=== PATIENT | male | born 1995 | race Caucasian/White ===

== ENCOUNTER 2021-06-08 16:50 | Emergency (ER) | payer BC, SELFPAY ==
--- NOTE | ~2021-06-08 | XR_ITS ---
EXAMINATION: XR ANKLE, LEFT CLINICAL INFORMATION: Twisted. fell ice fishing x2days COMPARISON: None TECHNIQUE: AP, lateral, and mortise views of the left ankle. FINDINGS: Hull B distal fibular fracture with minimal posterolateral displacement (2 mm). Surrounding soft tissues are edematous and swollen. Ankle joint effusion. Medial malleolus is normal. Bone mineralization is normal. Ankle mortise is symmetric. XR/XR ankle LT 2V IMPRESSION: Minimally displaced Hull B distal fibular fracture with an ankle joint effusion. No additional fractures are identified.
--- NOTE | ~2021-06-08 | XR_ITS ---
EXAMINATION: XR FOOT, LEFT CLINICAL INFORMATION: Pain. Injury. COMPARISON: None TECHNIQUE: AP, lateral, and oblique views of the left foot. FINDINGS: Soft tissues are swollen. Hull B distal fibular fracture is again noted. No appreciable fractures in the foot are identified. Bone mineralization is normal. Joint spaces are well-preserved. XR/XR foot LT 2V IMPRESSION: Hull B distal fibular fracture. No separate fractures of the foot.
[2021-06-08 16:57] VITALS: BP 139/83; PULSE 113; RESP 18; TEMP 36.9; O2SAT 99; BMI 18.6
--- NOTE | 2021-06-08 17:28 | ED_ITS ---
HPI - Extremity Injury (Lower) General Chief Complaint: Extremity Injury, Lower Stated Complaint: Twisted left ankle Time Seen by Provider: 06/08/21 17:28 Source: patient Mode of arrival: ambulatory Limitations: no limitations History of Present Illness HPI Narrative: 25 yo male healthy here with complaints of left ankle pain after fall Monday. Inversion injury of left ankle then fell on ankle. Unable to bear weight since fall. NO numbnes, tingling, redness, fevers, chills. Related Data Allergies Allergy/AdvReac Type Severity Reaction Status Date / Time No Known Allergies* Allergy Unknown Uncoded 06/08/21 17:24 Review of Systems Review of Systems: Yes all other systems are reviewed and are negative Constitutional: Constitutional: Reports no additional constitutional complaints, Denies body ache(s), Denies chills, Denies fever(s), Denies headache(s) and Denies weakness Eyes: Eyes: Reports no additional eye complaints and Denies change in vision ENT: Reports system reviewed and no additional complaints, except as documented, Denies dizziness, Denies headache(s), Denies nasal congestion, Denies nasal discharge and Denies neck pain Cardiovascular: Cardiovascular: Reports no additional cardiovascular complaints, Denies chest pain, Denies leg edema and Denies dyspnea Respiratory: Respiratory: Reports no additional respiratory complaints, Denies cough and Denies dyspnea Gastrointestinal: Gastrointestinal: Reports no additional gastrointestinal complaints, Denies abdominal pain, Denies diarrhea, Denies nausea and Denies vomiting Genitourinary: Genitourinary: Denies urinary incontinence Musculoskeletal: Musculoskeletal: Reports no additional musculoskeletal complaints, Denies back pain, Reports arthralgias, Reports joint swelling, Reports limited range of motion, Denies neck pain, Denies numbness and Denies tingling Integumentary/Breasts: Skin/Breast: Reports system reviewed and no additional complaints, except as docu and Denies rash Neurologic: Reports system reviewed and no additional complaints, except as documented, Denies Abnormal speech present, Denies dizziness, Denies headache(s), Denies numbness, Denies tingling and Denies weakness PMFSH Past Medical History Attestation statement: The following information was validated with the patient. Source: old records reviewed and nursing notes reviewed Social History Social History Advance Directives: No Advance Directives Information Provided: No Physical Exam Vital Signs: Vital Signs: Last Vital Signs Temp 98.4 F 06/08/21 16:57 Pulse 113 H 06/08/21 16:57 Resp 18 06/08/21 16:57 BP 139/83 06/08/21 16:57 Pulse Ox 99 06/08/21 16:57 BMI result Body Mass Index 18.6 Const: General: cooperative, healthy appearing, comfortable and no acute distress Orientation/consciousness: patient oriented x3 Limitations: no limitations HENMT: Head: Yes normal to inspection Ears: hearing grossly normal bilaterally General nose exam: Normal external nose present Face and sinus: Yes normal facial exam Mouth: Normal oral and palatal mucosa present Throat: Yes posterior oropharynx normal Eyes: General: appearance normal, both eyes and all related structures Pupils: Equal, round and reactive pupils present Neck: Neck: Yes normal visual inspection Chest: Chest palpation & inspection: normal inspection of the chest Resp: Effort & Inspection: normal respiratory effort Auscultation: clear to auscultation bilaterally Cardio: Rate: regular rate Rhythm: regular rhythm Peripheral pulses: Peripheral pulses 2+ throughout GI: Inspection: Yes normal to inspection Palpation (GI): Soft to palpation and nontender Auscultation: normal bowel sounds Back/Spine/Pelvis: Thoracic/Lumbar Spine: thoracic and lumbar spine normal to inspection Skin: General skin exam: no rashes or lesions noted Neuro: General: patient oriented x3, no focal motor deficits and normal sensation to monofilament Cranial nerves: Yes Equal, round and reactive pupils present Cognition (Neuro): normal cognition Speech: No Abnormal speech present Gait exam (Neuro): Normal gait present Motor exam (neuro): 5/5 motor strength present throughout Extrem: Other: Tenderness to the lateral left ankle with ecchymosis, tenderness to left dorsal foot with ecchymosis, swelling. +DP/PT pulses. Sensation intact. Normal cap refill General: Yes normal to inspection Course Course Course Narrative: 25 yo male here with left/foot ankle pain/swelling/ecchymosis after inversion injury left ankle Monday. Will need x-rays. 1829-x-ray show Minimally displaced Hull B distal fibular fracture with an ankle joint effusion. No additional fractures are identified. Discussed case with Jo CORMIER from Orthopedics. Recommended placing patient in a orthopedic boot with crutches with strict nonweightbearing Reviewed worrisome signs and symptoms with the patient. Reviewed rice for home. Comfortable plan for discharge home MDM - Extremity Injury (Lower) Medical Records Attestation: I reviewed the patient's medical records. Lab Data Attestation: I reviewed the patient's lab results. Imaging Data ankle x-ray: Attestation: I personally reviewed and interpreted this imaging study as follows: Radiologist's impression: [address] [address] XRay Report Signed Patient: Isrrael Lamar MR#: [id number] : 1995 Acct:[id number] Age/Sex: 25 / M ADM Date: 06/08/21 Loc: .ED Attending Dr: Ordering Physician: Sandy Mauricio DO Date of Service: 06/08/21 Procedure(s): XR ankle LT 2V Accession Number(s): [id number] cc: Sandy Mauricio DO~ EXAMINATION: XR ANKLE, LEFT CLINICAL INFORMATION: Twisted. fell ice fishing x2days? COMPARISON: None? TECHNIQUE: AP, lateral, and mortise views of the left ankle. FINDINGS: Hull B distal fibular fracture with minimal posterolateral displacement (2 mm). Surrounding soft tissues are edematous and swollen. Ankle joint effusion. Medial malleolus is normal. Bone mineralization is normal. Ankle mortise is symmetric. XR/XR ankle LT 2V IMPRESSION: Minimally displaced Hull B distal fibular fracture with an ankle joint effusion. No additional fractures are identified. foot xray: Attestation: I personally reviewed and interpreted this imaging study as follows: Radiologist's impression: FINDINGS: Soft tissues are swollen. Hull B distal fibular fracture is again noted. No appreciable fractures in the foot are identified. Bone mineralization is normal. Joint spaces are well-preserved.? XR/XR foot LT 2V IMPRESSION: Hull B distal fibular fracture. No separate fractures of the ju Procedures Procedure Narrative Procedure Narrative: Orthopedic boot, crutches Discharge Plan Discharge Clinical Impression: Fracture of distal end of fibula Qualifiers: Encounter type: initial encounter Fracture type: closed Laterality: left Patient Disposition: Home, Self-Care Instructions: Leg Fracture (ED), Crutch Instructions (ED), R.I.C.E. Treatment (ED) Additional Instructions: Use the boot while ambulating. Do not bear weight on the extremity and use crutches. Elevate, ice, rest Take Motrin as needed for pain Call Orthopedics for follow-up Referrals: Isaiah Horn MD [Physician] - 5 days Interventions: ED Discharge Assessment Last Done: 06/08/21 18:27 Discharge Date/Time: 06/08/21 18:28
== END 2021-06-08 18:28 | disposition home or self-care (01) ==
PROVIDERS: Emergency Provider Emergency Medicine
DX: S82.62XA Displaced fracture of lateral malleolus of left fibula, initial encounter for closed fracture (principal); W00.0XXA Fall on same level due to ice and snow, initial encounter; Y93.29 Activity, other involving ice and snow; Y92.828 Other wilderness area as the place of occurrence of the external cause; Y99.8 Other external cause status
CPT/HCPCS: 73600; 73620; 99283

== ENCOUNTER 2021-06-14 07:53 | Outpatient (REF) | payer BC, SELFPAY ==
--- NOTE | ~2021-06-14 | XR_ITS ---
EXAMINATION: XR ANKLE, LEFT CLINICAL INFORMATION: Left ankle fracture. Pain. COMPARISON: Left ankle 06/08/2021. TECHNIQUE: AP, lateral, and mortise views of the left ankle. FINDINGS: There is minimally displaced oblique fracture distal fibula with moderate soft tissue swelling slightly improved since previous study 06/08/2021. No additional fractures seen. The ankle mortise and subtalar joints are normal. XR/XR ankle LT min 3V IMPRESSION: Oblique distal fibular displaced fracture unchanged to last exam 06/08/2021. Moderate lateral malleolar soft tissue swelling has slightly improved.
== END 2021-06-14 07:54 | disposition home or self-care (01) ==
LOC: HO.HOSX 07:53
PROVIDERS: Visit Provider Physician Assistant
DX: M25.572 Pain in left ankle and joints of left foot (principal)
CPT/HCPCS: 73610

== ENCOUNTER 2021-06-28 13:12 | Outpatient (REF) | payer BC, SELFPAY ==
--- NOTE | ~2021-06-28 | XR_ITS ---
EXAMINATION: XR ankle LT min 3V CLINICAL INFORMATION: Pain COMPARISON: Left ankle radiograph 06/14/2021 TECHNIQUE: 3 views of the ankle XR/XR ankle LT min 3V FINDINGS/IMPRESSION: Redemonstration of the obliquely oriented fracture of the lateral malleolus which is mildly displaced, in unchanged alignment. No significant interval periosteal reaction or bony callus formation. Joint spaces are maintained. Small tibiotalar joint effusion, decreased from prior. Interval decrease in soft tissue swelling over the lateral malleolus.
== END 2021-06-28 13:13 | disposition home or self-care (01) ==
LOC: HO.HOSX 13:12
PROVIDERS: Visit Provider Physician Assistant
DX: S82.832D Other fracture of upper and lower end of left fibula, subsequent encounter for closed fracture with routine healing (principal)
CPT/HCPCS: 73610

== ENCOUNTER 2021-07-28 12:32 | Outpatient (REF) | payer BC, SELFPAY | END 2021-07-28 12:33 | disposition home or self-care (01) | LOC: HO.HOSX 12:32 | PROVIDERS: Visit Provider Physician Assistant | DX: Z13.89 Encounter for screening for other disorder (principal) ==

== ENCOUNTER 2021-12-12 00:10 | Emergency (ER) | payer BC, SELFPAY ==
[2021-12-12 00:17] VITALS: BP 126/81; PULSE 100; RESP 16; TEMP 35.9; O2SAT 95; BMI 20.1
--- NOTE | 2021-12-12 00:48 | ED_ITS ---
HPI - Extremity Problem General Chief complaint: Extremity Injury, Upper Stated complaint: hand laceration Time Seen by Provider: 12/12/21 01:11 Source: patient Mode of arrival: ambulatory Limitations: no limitations History of Present Illness HPI Narrative: 26-year-old male presents with laceration to the dorsal aspect of his right hand on the lateral side. States that he cut himself on a piece of glass. It is unknown when his last Tdap vaccine was updated. He has full range of motion and strength to the right hand. Does not report any other medical complaints at this time. Onset (ago): hour(s) (Within the hour of arrival) Location: right and upper extremity Severity scale (1-10): 2 Quality: aching Radiation: none Relieving factors: nothing Exacerbating factors: range of motion and palpation Associated symptoms: denies other symptoms Related Data Home Medications Medication Instructions Recorded Confirmed No Known Home Meds 06/14/21 06/14/21 Allergies Allergy/AdvReac Type Severity Reaction Status Date / Time No Known Allergies* Allergy Unknown Uncoded 06/28/21 13:23 Review of Systems Review of Systems: Constitutional: No Fever, No Chills ENT/Mouth: No Ear Pain, No Hoarseness, No sore throat Eyes: No Eye Pain, No Swelling, No Redness, No Foreign Body Cardiovascular: No Chest Pain, No SOB Respiratory: No Cough, No Dyspnea Gastrointestinal: No Nausea, No Vomiting, No Diarrhea, No abdominal Pain Genitourinary: No Dysuria, No Hematuria Musculoskeletal: positive right hand pain, No Myalgias, No Joint Swelling Skin: Positive right hand laceration, No rash Neuro: No Weakness, No Numbness, No Paresthesias, No Loss of Consciousness, No Dizziness, No Headache Psych: No Anxiety/Panic, No Depression Heme/Lymph: no easy bruising, no Lymphadenopathy Endocrine: No Polyuria, No Polydipsia Yes all other systems are reviewed and are negative [facility] Past Medical History Attestation statement: The following information was validated with the patient. Source: old records reviewed Social History Social History Current occupation: [employer] Physical Exam Vital Signs: Vital Signs: Last Vital Signs Temp 96.7 F L 12/12/21 00:17 Pulse 100 12/12/21 00:17 Resp 16 12/12/21 00:17 BP 126/81 12/12/21 00:17 Pulse Ox 95 12/12/21 00:17 O2 Del Method 12/12/21 00:17 BMI result Body Mass Index 20.1 Appearance: Alert. Oriented X3. No acute distress. Eyes: Pupils equal, round and reactive to light. ENT: Pharynx normal. Neck: Normal inspection. Neck supple. CVS: Normal heart rate and rhythm. Pulses normal. Respiratory: No respiratory distress. Breath sounds normal. Abdomen: Soft and nontender. Skin: 2 cm laceration to the dorsal aspect of the lateral right hand. Skin warm and dry. Normal skin color. Normal skin turgor. Extremities: Full range of motion, brisk capillary refill and strength 5/5 to bilateral upper extremities. Gait well-balanced well coordinated. Neuro: No motor deficit. No sensory deficit. Cranial nerves 2-12 intact. Course Course Course Narrative: 26-year-old male presents for laceration to the dorsal aspect of right hand. Approximately 2 cm in length. Patient blood pressure dressing but was unable to control the bleeding. No bleeding upon arrival to the emergency department. Has full range of motion to all digits. Brisk capillary refill and equal pulses to all digits. Afebrile. Nontoxic. Plan is for laceration repair. 01:12 prepped and draped in sterile fashion. Patient tolerated procedure well. Irrigated with copious amounts of normal saline. Patient continues with brisk capillary refill after laceration repair. Patient verbalized understanding of signs and symptoms indicating need for emergent intervention. Verbalized understanding of and agrees to plan of care discharge home. MDM - Extremity (Nontraumatic) MDM Narrative Medical decision making narrative: Laceration Medical Records Attestation: I reviewed the patient's medical records. Procedures Laceration Laceration 1: Site: hand Side (If applicable): right Size (cm): 2 Description: linear Depth: simple, single layer Local Anesthetic: lidocaine 1% Amount of anesthesia used (mL): 4 Pre-repair: wound explored, irrigated extensively and deep structures intact Skin layer closed with: nylon Size (cm): 5-0 Number of sutures: 6 Technique: simple, interrupted Discharge Plan Discharge Clinical Impression: Hand laceration Patient Disposition: Home, Self-Care Instructions: Care For Your Stitches (ED), Laceration (ED) Additional Instructions: You were evaluated for laceration to your right hand. Please return in 7-10 days to have sutures removed. If you notice any signs or symptoms indicating infection please return for evaluation. We updated your Tdap vaccine today. Thank you for choosing this emergency department for evaluation. Please follow-up with primary care physician as needed. Return to the emergency department for any new, concerning, or worsening symptoms. Prescriptions: No Action No Known Home Meds
[2021-12-12] MEDS: Diphth,Pertus(ACell),Tet Adult 0.5 ML SYRINGE IM (01:13)
== END 2021-12-12 01:34 | disposition home or self-care (01) ==
PROVIDERS: Emergency Provider Emergency Medicine Emergency Medical Services
DX: S61.411A Laceration without foreign body of right hand, initial encounter (principal); W25.XXXA Contact with sharp glass, initial encounter; Y93.9 Activity, unspecified; Y92.9 Unspecified place or not applicable; Y99.9 Unspecified external cause status; Z79.899 Other long term (current) drug therapy
CPT/HCPCS: 12001; 90471; 90715; 96372; 99284

== ENCOUNTER 2022-05-02 18:15 | Emergency (ER) | payer BC, SELFPAY ==
--- NOTE | ~2022-05-02 | XR_ITS ---
EXAMINATION: XR CHEST CLINICAL INFORMATION: Cough and chest pain COMPARISON: None TECHNIQUE: 2 views of the chest were obtained. FINDINGS: No significant abnormality is noted involving the heart, lungs, mediastinum, bony thorax or soft tissues. XR/XR chest 2V IMPRESSION: Unremarkable examination.
--- NOTE | 2022-05-02 18:18 | ECG_ITS ---
Test Reason : cp Blood Pressure : / mmHG Vent. Rate : 099 BPM Atrial Rate : 099 BPM P-R Int : 126 ms QRS Dur : 090 ms QT Int : 328 ms P-R-T Axes : 073 082 048 degrees QTc Int : 420 ms Sinus rhythm with Premature supraventricular complexes Otherwise normal ECG No previous ECGs available Referred By: Marta Michaud Electronically Signed By:JACQUELYN LABOY
[2022-05-02 18:25] VITALS: BP 144/98; PULSE 102; RESP 18; TEMP 37; O2SAT 99; BMI 21.0
--- NOTE | 2022-05-02 18:27 | ED.CHESTPAIN ---
HPI - Chest Pain General Chief Complaint: Dizziness Stated Complaint: Hot, Chest Pain, Hard time breathing Time Seen by Provider: 05/02/22 19:45 Source: patient Mode of arrival: ambulatory Limitations: no limitations History of Present Illness HPI narrative: 26 yo male healthy here with feeling lightheaded, chest pain w/ breathing, shortness of breath, feeling hot all over intermittent since this morning. No cough, fevers, vomiting, diarrhea, headache, neck pain or neck stiffness, skin rash. Related Data Home Medications Medication Instructions Recorded Confirmed No Known Home Meds 06/14/21 06/14/21 Allergies Allergy/AdvReac Type Severity Reaction Status Date / Time No Known Allergies* Allergy Unknown Uncoded 06/28/21 13:23 Review of Systems Review of Systems: Yes all other systems are reviewed and are negative Constitutional: Constitutional: Reports no additional constitutional complaints, Denies body ache(s), Denies chills, Denies fever(s), Denies headache(s) and Denies weakness Eyes: Eyes: Reports no additional eye complaints and Denies change in vision ENT: Reports system reviewed and no additional complaints, except as documented, Reports dizziness, Denies headache(s), Denies nasal congestion, Denies nasal discharge and Denies neck pain Cardiovascular: Cardiovascular: Reports no additional cardiovascular complaints, Reports chest pain, Denies leg edema and Reports dyspnea Respiratory: Respiratory: Reports no additional respiratory complaints, Denies cough and Reports dyspnea Gastrointestinal: Gastrointestinal: Reports no additional gastrointestinal complaints, Denies abdominal pain, Denies diarrhea, Denies nausea and Denies vomiting Genitourinary: Genitourinary: Denies urinary incontinence Musculoskeletal: Musculoskeletal: Reports no additional musculoskeletal complaints, Denies back pain, Denies arthralgias, Denies joint swelling, Denies neck pain, Denies numbness and Denies tingling Integumentary/Breasts: Skin/Breast: Reports system reviewed and no additional complaints, except as docu and Denies rash Neurologic: Reports system reviewed and no additional complaints, except as documented, Denies Abnormal speech present, Reports dizziness, Denies headache(s), Denies numbness, Denies tingling and Denies weakness PMFSH Past Medical History Attestation statement: The following information was validated with the patient. Source: old records reviewed and nursing notes reviewed Social History Social History Advance Directives: No Advance Directives Information Provided: Yes Current occupation: [employer] Physical Exam Vital Signs: Vital Signs: Last Vital Signs Temp 98.6 F 05/02/22 18:25 Pulse 102 H 05/02/22 18:25 Resp 18 05/02/22 18:25 BP 144/98 H 05/02/22 18:25 Pulse Ox 99 05/02/22 18:25 O2 Del Method 05/02/22 18:25 BMI result Body Mass Index 21.0 Const: General: cooperative, healthy appearing, comfortable and no acute distress Orientation/consciousness: patient oriented x3 Limitations: no limitations HEENT: Head: Yes normal to inspection Ears: hearing grossly normal bilaterally General nose exam: Normal external nose present Face and sinus: Yes normal facial exam Mouth: Normal oral and palatal mucosa present Throat: Yes posterior oropharynx normal Eyes: General: appearance normal, both eyes and all related structures Pupils: Equal, round and reactive pupils present Neck: Neck: Yes normal visual inspection Chest: Chest palpation & inspection: normal inspection of the chest Resp: Effort & Inspection: normal respiratory effort Auscultation: clear to auscultation bilaterally Cardio: Rate: regular rate Rhythm: regular rhythm Peripheral pulses: Peripheral pulses 2+ throughout GI: Inspection: Yes normal to inspection Palpation (GI): Soft to palpation and nontender Auscultation: normal bowel sounds Back/Spine/Pelvis: Thoracic/Lumbar Spine: thoracic and lumbar spine normal to inspection Skin: General skin exam: no rashes or lesions noted Neuro: General: patient oriented x3, no focal motor deficits and normal sensation to monofilament Cranial nerves: Yes Equal, round and reactive pupils present Cognition (Neuro): normal cognition Speech: No Abnormal speech present Gait exam (Neuro): Normal gait present Motor exam (neuro): 5/5 motor strength present throughout Extrem: General: Yes normal to inspection, Yes no pedal edema and Yes no calf tenderness Course Course Course Narrative: This is a rapid medical exam. Deferred additional HPI, ROS, PE to primary provider. 26 yo male healthy here with feeling lightheaded, chest pain w/ breathing, shortness of breath, feeling hot all over intermittent since this morning. Will check EKG, labs, CXR, covid screen, VSS Reevaluation(s) Reevaluation #1: Labs are unremarkable. EKG shows no ischemic changes. Chest x-ray is negative for infection. COVID screen and flu screen are negative. RSV is positive. No hypoxia or tachypnea. Lungs are clear. Recommend supportive care. Reviewed worrisome signs and symptoms of when to return to the emergency room. Comfortable plan for discharge home. Medical Decision Making Medical Decision Making [facility] Narrative: 26 yo male healthy here with feeling lightheaded, chest pain w/ breathing, shortness of breath, feeling hot all over intermittent since this morning. Vitals are stable. Lungs are clear. Will send testing for labs, EKG, chest x-ray, COVID/flu/RSV Differential Diagnosis Differential Diagnoses: The differential diagnosis associated with the presentation includes Perc score 0, less likely ACS with negative troponin and EKG, viral syndrome, pneumonia Lab Data [facility] Lab Attestation statement: I reviewed the patient's lab results. Result Diagrams: 05/02/22 18:48 05/02/22 18:48 Labs: Lab Results 05/02/22 05/02/22 05/02/22 Range/Units 18:48 18:48 18:48 WBC 7.7 (4.8-10.8) X10*3/uL RBC 5.27 (4.60-5.80) X10*6/uL Hgb 17.2 (14.0-18.0) g/dl Hct 49.6 (42.0-52.0) % MCV 94.1 (80.0-98.0) fL MCH 32.6 (27.0-33.0) pg MCHC 34.7 (31.0-36.0) g/dl RDW 12.3 (11.0-16.0) % Plt Count 303 (160-400) X10*3/uL MPV 9.5 (9.4-12.4) fL Immature Gran % (Auto) 0.3 (0.0-0.4) % Neut % (Auto) 64.5 (45-73) % Lymph % (Auto) 24.0 (20-40) % [place] % (Auto) 10.5 (2-11) % Eos % (Auto) 0.1 (0-4) % Baso % (Auto) 0.6 (0-2) % Lymph # (Auto) 1.9 (1.2-4.9) X10*3/uL [place] # (Auto) 0.8 (0.1-1.2) X10*3/uL Eos # (Auto) 0.0 (0.0-0.4) X10*3/uL Baso # (Auto) 0.1 (0.0-0.2) X10*3/uL Abs Immat Gran (auto) 0.02 (0.00-0.03) X10*3/uL Absolute Neuts (auto) 5.0 (2.0-8.3) x10*3/uL Absolute Nucleated RBC 0.000 (0.0-0.012) X10*3/uL Nucleated RBC % (auto) 0.0 (0.0-0.2) /100WBC Sodium 137 (135-145) mmol/L Potassium 4.4 (3.3-5.1) mmol/L Chloride 96 (96-108) mmol/L Carbon Dioxide 28 (22-29) mmol/L Anion Gap 17 (12-20) BUN 6 L (9-16) mg/dL Creatinine 0.93 (0.5-1.4) mg/dL Estim Creat Clear Calc 112.3 Estimated GFR > 60 Random Glucose 103 (60-115) mg/dL Calcium 10.5 H (8.4-10.2) mg/dL Magnesium 1.9 (1.6-2.6) mg/dL Total Bilirubin 0.7 (0.0-1.0) mg/dL Direct Bilirubin 0.3 (0.0-0.5) mg/dL AST 46 H (5-37) U/L ALT 119 H (0-40) U/L Alkaline Phosphatase 114 (39-117) U/L Troponin I High Sens < 3.5 (<3.5-35.0) ng/L Total Protein 7.5 (6.5-8.0) g/dL Albumin 4.6 (3.5-5.0) g/dL TSH 1.61 (0.32-4.0) uIU/mL Influenza Type A (PCR) (Negative) Influenza Type B (PCR) (Negative) RSV RNA Qual (PCR) (Negative) SARS-CoV-2 RNA (RT-PCR) (Negative) 05/02/22 Range/Units 18:48 WBC (4.8-10.8) X10*3/uL RBC (4.60-5.80) X10*6/uL Hgb (14.0-18.0) g/dl Hct (42.0-52.0) % MCV (80.0-98.0) fL MCH (27.0-33.0) pg MCHC (31.0-36.0) g/dl RDW (11.0-16.0) % Plt Count (160-400) X10*3/uL MPV (9.4-12.4) fL Immature Gran % (Auto) (0.0-0.4) % Neut % (Auto) (45-73) % Lymph % (Auto) (20-40) % [place] % (Auto) (2-11) % Eos % (Auto) (0-4) % Baso % (Auto) (0-2) % Lymph # (Auto) (1.2-4.9) X10*3/uL [place] # (Auto) (0.1-1.2) X10*3/uL Eos # (Auto) (0.0-0.4) X10*3/uL Baso # (Auto) (0.0-0.2) X10*3/uL Abs Immat Gran (auto) (0.00-0.03) X10*3/uL Absolute Neuts (auto) (2.0-8.3) x10*3/uL Absolute Nucleated RBC (0.0-0.012) X10*3/uL Nucleated RBC % (auto) (0.0-0.2) /100WBC Sodium (135-145) mmol/L Potassium (3.3-5.1) mmol/L Chloride (96-108) mmol/L Carbon Dioxide (22-29) mmol/L Anion Gap (12-20) BUN (9-16) mg/dL Creatinine (0.5-1.4) mg/dL Estim Creat Clear Calc Estimated GFR Random Glucose (60-115) mg/dL Calcium (8.4-10.2) mg/dL Magnesium (1.6-2.6) mg/dL Total Bilirubin (0.0-1.0) mg/dL Direct Bilirubin (0.0-0.5) mg/dL AST (5-37) U/L ALT (0-40) U/L Alkaline Phosphatase (39-117) U/L Troponin I High Sens (<3.5-35.0) ng/L Total Protein (6.5-8.0) g/dL Albumin (3.5-5.0) g/dL TSH (0.32-4.0) uIU/mL Influenza Type A (PCR) NEGATIVE (Negative) Influenza Type B (PCR) NEGATIVE (Negative) RSV RNA Qual (PCR) POSITIVE A (Negative) SARS-CoV-2 RNA (RT-PCR) NEGATIVE (Negative) Independent Interpretation I performed an independent interpretation of an: EKG and Plain X-Ray (Chest x-ray negative for any findings) Interpretation: Sinus rhythm with PVCs with rate of 99, normal MD, normal QRS, normal QT Discharge Plan Discharge Clinical Impression: RSV infection Patient Disposition: Home, Self-Care Instructions: Respiratory Syncytial Virus (ED) Additional Instructions: Lab work and x-ray as well as EKG are normal Flu and COVID testing are negative RSV test is positive Stay home for a few days Lots of fluid and rest Motrin or Tylenol for any pain for fever Prescriptions: No Action No Known Home Meds Referrals: Physician,None [Primary Care Provider] - Interventions: ED Discharge Assessment Last Done: 05/02/22 19:50 Discharge Date/Time: 05/02/22 19:52
[2022-05-02 18:54] LABS: MANUAL DIFF FLAG NO
[2022-05-02 18:59] LABS: Basophils Absolute Auto 0.1 X10*3/uL (0.0-0.2); Basophils Percent Auto 0.6 % (0-2); Eosinophils Percent Auto 0.1 % (0-4); Hematocrit 49.6 % (42.0-52.0); Hemoglobin 17.2 g/dl (14.0-18.0); Imm Gran Abs Auto 0.02 X10*3/uL (0.00-0.03); Imm Gran Pct Auto 0.3 % (0.0-0.4); Lymphocytes Absolute Auto 1.9 X10*3/uL (1.2-4.9); Mean Corpuscular HGB Conc 34.7 g/dl (31.0-36.0); Mean Corpuscular Hemoglobin 32.6 pg (27.0-33.0); Mean Corpuscular Volume 94.1 fL (80.0-98.0); Mean Platelet Volume 9.5 fL (9.4-12.4); Monocytes Absolute Auto 0.8 X10*3/uL (0.1-1.2); Monocytes Percent Auto 10.5 % (2-11); Neutrophils Percent Auto 64.5 % (45-73); Platelet Count 303 X10*3/uL (160-400); Red Blood Count 5.27 X10*6/uL (4.60-5.80); Red Cell Distribution Width 12.3 % (11.0-16.0); White Blood Count 7.7 X10*3/uL (4.8-10.8)
[2022-05-02 19:33] LABS: Influenza A PCR NEGATIVE (Negative); Influenza B PCR NEGATIVE (Negative); Resp Syncy Virus RNA Qual PCR POSITIVE (Negative); SARS COV2 PCR INHOUSE NEGATIVE (Negative)
[2022-05-02 19:35] LABS: Alanine Aminotransferase 119 U/L (0-40); Albumin Level 4.6 g/dL (3.5-5.0); Alkaline Phosphatase 114 U/L (39-117); Anion Gap 17 (12-20); Aspartate Amino Transferase 46 U/L (5-37); Bilirubin Direct 0.3 mg/dL (0.0-0.5); Bilirubin Total 0.7 mg/dL (0.0-1.0); Blood Urea Nitrogen 6 mg/dL (9-16); Calcium 10.5 mg/dL (8.4-10.2); Carbon Dioxide 28 mmol/L (22-29); Chloride 96 mmol/L (96-108); Creatinine Clr Calc Pharmacy 112.3; Estimated Glomerular Filt Rate > 60; Glucose Random 103 mg/dL (60-115); Magnesium 1.9 mg/dL (1.6-2.6); Potassium 4.4 mmol/L (3.3-5.1); Sodium 137 mmol/L (135-145); Thyroid Stimulating Hormone 1.61 uIU/mL (0.32-4.0); Total Protein 7.5 g/dL (6.5-8.0)
[2022-05-02 19:39] LABS: Troponin-I High Sensitivity < 3.5 ng/L (<3.5-35.0)
== END 2022-05-02 19:52 | disposition home or self-care (01) ==
PROVIDERS: Nurse Practitioner Family; Emergency Provider Emergency Medicine
DX: R06.02 Shortness of breath (principal); B97.4 Respiratory syncytial virus as the cause of diseases classified elsewhere; Z20.822 Contact with and (suspected) exposure to COVID-19
CPT/HCPCS: 0241U; 36415; 71046; 80048; 80076; 83735; 84443; 84484; 85025; 93005; 99283